=== PATIENT | female | born 1980 | race Caucasian/White ===

== ENCOUNTER 2022-06-07 12:51 | Emergency (ER) | payer OTHER ==
[~2022-06-07] VITALS: Ht 157.5 cm; Wt 65.8 kg
--- NOTE | 2022-06-07 13:00 | NUR ---
called to triage,no answer
--- NOTE | 2022-06-07 13:14 | NUR ---
CALLED FOR TRIAGE NO RESPONSE
[2022-06-07 13:23] VITALS: BP 151/103
--- NOTE | 2022-06-07 13:28 | NUR ---
BIBS W/ C/O LEFT KNEE PAIN/SWELLING, GLF X2 DAYS AGO. TO ER BED 16.
[2022-06-07] MEDS ORDERED: IBUPROFEN 600 MG TABLET ONE (15:05)
[2022-06-07] MEDS: IBUPROFEN 600 MG TABLET PO ONE (15:07)
--- NOTE | 2022-06-07 15:18 | NUR ---
Pt refused doctor's note; stated that she is going back to work after.
--- NOTE | 2022-06-07 15:19 | NUR ---
Patient discharged back to work, in stable condition. Written and verbal after care instructions given. Patient verbalizes understanding of instruction.
== END 2022-06-07 15:21 | disposition home or self-care (01) ==
LOC: ER 12:54
DX: M25.562 Pain in left knee (principal)
CPT/HCPCS: 73564-TC